=== PATIENT | female | born 1935 ===

== ENCOUNTER 2017-06-19 12:48 | Emergency (ER) | payer MEDICARE, OTHER ==
[2017-06-19 13:09] VITALS: TEMP 98
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
--- NOTE | 2017-06-19 14:14 | RAD ---
PROCEDURE: Radiographs of the right humerus. HISTORY: RIGHT UPPER ARM PAIN COMPARISON: None. FINDINGS: BONES: Normal. No fracture or focal lesion. SOFT TISSUES: Normal. OTHER FINDINGS: None. IMPRESSION: Normal radiographs of right humerus.
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
[2017-06-19] MEDS ORDERED: Bacitracin 500 Units/gm Oint Foilpak UD TOP ONE (14:16)
[2017-06-19] MEDS ORDERED: Bacitracin 500 Units/gm Oint Foilpak UD ONE (15:03)
[2017-06-19 15:06] VITALS: BP 188/81; PULSE 64; RESP 15
[2017-06-25 15:12] VITALS: O2SAT 95
== END 2017-06-19 15:06 | disposition home or self-care (01) ==
LOC: C.ER 12:48
DX: S40.021A Contusion of right upper arm, initial encounter (principal); M79.651 Pain in right thigh; V01.10XA Pedestrian on foot injured in collision with pedal cycle in traffic accident, initial encounter; Y92.410 Unspecified street and highway as the place of occurrence of the external cause